=== PATIENT | male | born 1995 | race Caucasian/White ===

== ENCOUNTER 2024-02-25 08:10 | Outpatient (CLI) | payer OTHER, SELFPAY | END 2024-02-25 08:11 | disposition home or self-care (01) | LOC: NFLDREF 02-26 13:06 | PROVIDERS: PCP Emergency Medicine; Referring Provider Emergency Medicine; Visit Provider Emergency Medicine | DX: Z13.1 Encounter for screening for diabetes mellitus (principal); Z13.6 Encounter for screening for cardiovascular disorders | CPT/HCPCS: 80061; 82947 ==

== ENCOUNTER 2024-02-29 19:04 | Outpatient (CLI) | payer OTHER, SELFPAY ==
--- NOTE | 2024-03-16 09:27 | W.PM.SLEEP ---
Sleep Study Details Details Interpreting Provider: Griselda Date of Sleep Study: 02/29/24 Sleep Study Details: STUDY TYPE:? Home unattended ? BMI:? 33.4 ORDERING PROVIDER:Ni Villalobos INDICATION:? Concerns about sleep apnea ? SLEEP SUMMARY:? 183.6 minutes RESPIRATORY SUMMARY:? AHI 11.1, supine AHI 20.9, left and right lateral AHI is 3.2 and 3.1 respectively Low oxygen 82 33.4% of study oxygen less than 90% Snoring 97.4% PERIODIC LIMB MOVEMENTS OF SLEEP:? Not recorded during home study CARDIAC:? Range 46-104, mean 64.5 IMPRESSION:? Mild obstructive sleep apnea overall was significant supine position dependency 1/3 of the study oxygen level was less than 90% RECOMMENDATION: Treatment options include CPAP AutoSet 4-17, dental appliance and/or airway expansion surgery. Once effective therapy for the sleep apnea is established recommend a recommend an overnight oximetry study
== END 2024-02-29 19:05 | disposition home or self-care (01) ==
LOC: SLEEP 19:04
PROVIDERS: PCP Emergency Medicine; Visit Provider Otolaryngology
DX: G47.33 Obstructive sleep apnea (adult) (pediatric) (principal)
CPT/HCPCS: 95806